=== PATIENT | female | born 1970 | race Caucasian/White ===

== ENCOUNTER 2017-11-08 14:59 | Outpatient (CLI) | payer OTHER | END 2017-11-08 15:11 | disposition home or self-care (01) | LOC: RAD 14:59 | DX: M79.672 Pain in left foot (principal); M25.552 Pain in left hip ==

== ENCOUNTER 2018-01-24 13:26 | Outpatient (CLI) | payer OTHER | END 2018-01-24 13:52 | disposition home or self-care (01) | LOC: MAMO-SONO 13:26 | DX: Z12.31 Encounter for screening mammogram for malignant neoplasm of breast (principal); N60.11 Diffuse cystic mastopathy of right breast; N60.12 Diffuse cystic mastopathy of left breast ==

== ENCOUNTER 2020-05-19 11:37 | Outpatient (CLI) | payer OTHER | END 2020-05-19 11:46 | disposition home or self-care (01) | LOC: MAMO-SONO 11:37 | PROVIDERS: ATTEND Obstetrics & Gynecology | DX: N60.02 Solitary cyst of left breast (principal); Z12.31 Encounter for screening mammogram for malignant neoplasm of breast; N60.11 Diffuse cystic mastopathy of right breast; N60.12 Diffuse cystic mastopathy of left breast ==

== ENCOUNTER 2021-07-05 08:26 | Outpatient (CLI) | payer OTHER | END 2021-07-05 08:43 | disposition home or self-care (01) | LOC: MAMO-SONO 08:26 | PROVIDERS: ATTEND Obstetrics & Gynecology | DX: Z12.31 Encounter for screening mammogram for malignant neoplasm of breast (principal); N60.11 Diffuse cystic mastopathy of right breast; N60.12 Diffuse cystic mastopathy of left breast ==

== ENCOUNTER 2022-12-20 11:21 | Outpatient (CLI) | payer OTHER | END 2022-12-20 11:24 | disposition home or self-care (01) | LOC: MAMO-SONO 11:21 | PROVIDERS: ATTEND Obstetrics & Gynecology | DX: Z12.31 Encounter for screening mammogram for malignant neoplasm of breast (principal); N60.11 Diffuse cystic mastopathy of right breast; N60.12 Diffuse cystic mastopathy of left breast ==

== ENCOUNTER → 2024-01-29 | Outpatient (CLI) | payer OTHER | END | disposition home or self-care (01) | LOC: MAMO-SONO 09:57 | PROVIDERS: ATTEND Obstetrics & Gynecology | DX: N60.11 Diffuse cystic mastopathy of right breast (principal); N60.12 Diffuse cystic mastopathy of left breast; Z12.31 Encounter for screening mammogram for malignant neoplasm of breast ==

== ENCOUNTER 2025-04-03 10:09 | Outpatient (CLI) | payer OTHER | END 2025-04-03 10:15 | disposition home or self-care (01) | LOC: MAMO-SONO 10:09 | PROVIDERS: ATTEND Obstetrics & Gynecology | DX: N60.11 Diffuse cystic mastopathy of right breast (principal); N60.12 Diffuse cystic mastopathy of left breast; Z12.31 Encounter for screening mammogram for malignant neoplasm of breast ==